=== PATIENT | female | born 1985 | race Caucasian/White ===

== ENCOUNTER 2023-11-29 12:50 | Inpatient (IN) | payer SELFPAY ==
[~2023-11-29] VITALS: Ht 121.9 cm; Wt 2.3 kg
[2023-11-29] MEDS: ENOXAPARIN 40MG/0.4ML SYR SUBCUT SCH (01:20)
[2023-11-29] MEDS: SODIUM CHLORIDE 0.9% 1,000 ML IV SCH (01:23)
[2023-11-29 13:17] LABS: BASOPHILS % 0.4 % (0.0-2.0); EOSINOPHILS % 2.1 % (0.0-5.0); HEMATOCRIT. 37.4 % (36.0-48.0); HEMOGLOBIN. 12.2 g/dL (12.0-16.0); LYMPHOCYTES % 18.8 % (20.0-50.0); MEAN CORPUSCULAR HEMOGLOBIN 28.1 pg (28.0-32.0); MEAN CORPUSCULAR HGB CONC 32.5 g/dL (31.0-37.0); MEAN CORPUSCULAR VOLUME 86.4 fL (81.0-99.0); MEAN PLATELET VOLUME 7.7 fl (7.4-10.4); MONOCYTES % 6.7 % (2.0-8.0); PLATELET 297 x1000/uL (130-400); RED BLOOD CELL COUNT 4.33 mill/uL (4.2-5.4); RED CELL DISTRIBUTION WIDTH 14.5 % (11.6-14.6); WHITE BLOOD COUNT 7.3 x1000/uL (4.5-11.0)
[2023-11-29 13:25] LABS: CHLORIDE 106 mEq/L (98-107); POTASSIUM 3.7 mEq/L (3.5-5.1); SODIUM 137 mEq/L (136-145)
[2023-11-29 13:26] LABS: CARBON DIOXIDE 28 mEq/L (21-32)
[2023-11-29 13:27] LABS: CALCIUM 8.9 mg/dL (8.7-10.4)
[2023-11-29 13:31] LABS: CREATININE 0.7 mg/dL (0.6-1.0); GLUCOSE 119 mg/dL (70-105)
[2023-11-29 13:32] LABS: UREA NITROGEN BLOOD 11 mg/dL (9-23)
[2023-11-29 13:33] LABS: ALANINE AMINOTRANSFERASE 827 IU/L (10-49); ALBUMIN 4.4 g/dL (3.2-4.8); ASPARTATE AMINOTRANSFERASE 585 IU/L (<34)
[2023-11-29 13:34] LABS: BILIRUBIN TOTAL 1.6 mg/dL (0.1-1.0); PROTEIN TOTAL 7.1 g/dL (6.0-8.3)
[2023-11-29 15:06] LABS: HCG SCREEN NEGATIVE
[2023-11-29] MEDS: SODIUM CHLORIDE 0.9% 1,000 ML IV ONE (15:32)
[2023-11-29] MEDS: ONDANSETRON HCL 4MG/2ML INJ IV ONE (15:34)
[2023-11-29 15:35] LABS: CLARITY URINE CLOUDY (CLEAR); COLOR URINE ORANGE (YELLOW); GLUCOSE URINE NEGATIVE (NEGATIVE); KETONES URINE TRACE (NEGATIVE); LEUKOCYTE ESTERASE URINE 2+ (NEGATIVE); NITRITE URINE NEGATIVE (NEGATIVE); OCCULT BLOOD URINE 3+ (NEGATIVE); PROTEIN URINE 1+ (NEGATIVE); SPECIFIC GRAVITY URINE 1.023 (1.005-1.030)
[2023-11-29 16:07] LABS: BACTERIA URINE 2+; RBC URINE TNTC /hpf (0-2); SQUAMOUS EPITHELIAL CELL URINE 1+ /lpf (RARE/1+)
[2023-11-29] MEDS: MORPHINE SULFATE 2 MG/ML INJ (NOT FOR IM USE) IV NR (16:11)
[2023-11-29] MEDS ORDERED: SODIUM CHLORIDE 0.9% 1,000 ML IV ONE (16:30)
[2023-11-29] MEDS ORDERED: GUAIFENESIN 200MG/10ML SUGAR FREE UDC PO PRN (17:15)
[2023-11-29] MEDS ORDERED: IPRATROPIUM/ALBUTEROL 0.5-3(2.5)MG/3ML NEB NEB PRN (17:15)
[2023-11-29] MEDS ORDERED: MAGNESIUM/ALUMINUM HYDROXIDE/SIMETHICONE 30ML UDC PO PRN (17:15)
[2023-11-29] MEDS ORDERED: NITROGLYCERIN 0.4MG TABLET SL SL PRN (17:15)
[2023-11-29] MEDS ORDERED: ZOLPIDEM TARTRATE 5MG TABLET PO PRN (17:15)
[2023-11-29] MEDS ORDERED: ACETAMINOPHEN 325MG TABLET PO PRN ×2 (17:15)
[2023-11-29] MEDS ORDERED: AZITHROMYCIN 500 MG in DEXT 5% WATER 250 ML IV SCH (17:15)
[2023-11-29] MEDS ORDERED: DOCUSATE SODIUM 100MG CAPSULE PO PRN (17:15)
[2023-11-29] MEDS ORDERED: CLONIDINE 0.1MG TABLET PO PRN (17:15)
[2023-11-29] MEDS ORDERED: NALOXONE HCL 0.4MG/ML VIAL IV PRN (17:30)
[2023-11-29] MEDS: CEFTRIAXONE 1GM/50ML 50 ML IV SCH (18:51)
[2023-11-29] MEDS: PANTOPRAZOLE SODIUM 40 MG/VIAL IV SCH (18:52)
[2023-11-29 18:56] LABS: T4 FREE 1.35 ng/dL (0.89-1.76)
[2023-11-29 18:57] LABS: THYROID STIMULATING HORMONE 2.63 uIU/mL (0.55-4.78)
[2023-11-29 18:59] LABS: VITAMIN B12 SERUM 1306 pg/mL (211-911)
[2023-11-29] MEDS: KETOROLAC 15MG/ML VIAL IV PRN (19:10)
[2023-11-29] MEDS ORDERED: AZITHROMYCIN 500MG/250ML 250 ML IV SCH (19:30)
[2023-11-29 22:10] VITALS: BP 105/57; PULSE 60; RESP 20; TEMP 36.6404
[2023-11-29] MEDS ORDERED: IOHEXOL-300 100 ML BOTTLE ONE (23:22)
[2023-11-30] VITALS: BP 105/57; PULSE 60; RESP 20; TEMP 36.61404; O2SAT 96
[2023-11-30] MEDS: ASCORBIC ACID 500 MG TABLET PO SCH (01:28)
[2023-11-30 04:00] VITALS: BP 98/53; PULSE 54; RESP 20; TEMP 36.72516; O2SAT 96
[2023-11-30] MEDS: AZITHROMYCIN 500MG/250ML 250 ML IV SCH (06:03)
[2023-11-30 07:15] LABS: CHLORIDE 108 mEq/L (98-107); POTASSIUM 3.5 mEq/L (3.5-5.1); SODIUM 140 mEq/L (136-145)
[2023-11-30 07:16] LABS: CARBON DIOXIDE 24 mEq/L (21-32)
[2023-11-30 07:17] LABS: CALCIUM 8.2 mg/dL (8.7-10.4)
[2023-11-30 07:21] LABS: CREATININE 0.6 mg/dL (0.6-1.0); GLUCOSE 85 mg/dL (70-105)
[2023-11-30 07:22] LABS: PROTEIN TOTAL 6.2 g/dL (6.0-8.3); UREA NITROGEN BLOOD 9 mg/dL (9-23)
[2023-11-30 07:23] LABS: ALANINE AMINOTRANSFERASE 674 IU/L (10-49); ALBUMIN 3.9 g/dL (3.2-4.8); AMYLASE 798 IU/L (30-118); ASPARTATE AMINOTRANSFERASE 259 IU/L (<34); BASOPHILS % 0.2 % (0.0-2.0); EOSINOPHILS % 0.4 % (0.0-5.0); HEMATOCRIT. 36.5 % (36.0-48.0); HEMOGLOBIN. 11.6 g/dL (12.0-16.0); MEAN CORPUSCULAR HEMOGLOBIN 27.8 pg (28.0-32.0); MEAN CORPUSCULAR HGB CONC 31.8 g/dL (31.0-37.0); MEAN CORPUSCULAR VOLUME 87.4 fL (81.0-99.0); MEAN PLATELET VOLUME 8.8 fl (7.4-10.4); MONOCYTES % 5.2 % (2.0-8.0); NEUTROPHILS % 78.2 % (40.0-76.0); PLATELET 249 x1000/uL (130-400); RED BLOOD CELL COUNT 4.17 mill/uL (4.2-5.4); RED CELL DISTRIBUTION WIDTH 14.9 % (11.6-14.6)
[2023-11-30 08:00] VITALS: BP 91/47; PULSE 63; RESP 18; TEMP 36.83628; O2SAT 98
[2023-11-30] MEDS: ZINC SULFATE 220 MG ( 50 ) CAPSULE PO SCH (08:31)
[2023-11-30] MEDS ORDERED: CEFTRIAXONE 1GM/50ML 50 ML IV SCH (09:00)
[2023-11-30] MEDS: ONDANSETRON HCL 4MG/2ML INJ IV PRN (11:36)
[2023-11-30] MEDS: MORPHINE SULFATE 2 MG/ML INJ (NOT FOR IM USE) IV PRN (11:37)
[2023-11-30 12:00] VITALS: BP 119/46; PULSE 63; RESP 18; TEMP 37.11408; O2SAT 98
[2023-11-30 16:00] VITALS: BP 95/41; PULSE 53; RESP 18; TEMP 36.28068; O2SAT 100
[2023-11-30 20:00] VITALS: BP 101/53; PULSE 61; RESP 18; TEMP 36.9474; O2SAT 94
[2023-12-01] VITALS: BP 116/67; PULSE 68; RESP 20; TEMP 36.55848; O2SAT 100
[2023-12-01 04:00] VITALS: BP 116/73; PULSE 56; RESP 20; TEMP 37.00296; O2SAT 100
[2023-12-01 07:25] LABS: BASOPHILS % 0.4 % (0.0-2.0); EOSINOPHILS % 1.5 % (0.0-5.0); HEMATOCRIT. 34.8 % (36.0-48.0); HEMOGLOBIN. 11.2 g/dL (12.0-16.0); LYMPHOCYTES % 20.4 % (20.0-50.0); MEAN CORPUSCULAR HEMOGLOBIN 27.9 pg (28.0-32.0); MEAN CORPUSCULAR HGB CONC 32.2 g/dL (31.0-37.0); MEAN CORPUSCULAR VOLUME 86.7 fL (81.0-99.0); MEAN PLATELET VOLUME 8.3 fl (7.4-10.4); MONOCYTES % 7.3 % (2.0-8.0); NEUTROPHILS % 70.4 % (40.0-76.0); PLATELET 250 x1000/uL (130-400); RED BLOOD CELL COUNT 4.01 mill/uL (4.2-5.4); RED CELL DISTRIBUTION WIDTH 15.2 % (11.6-14.6); WHITE BLOOD COUNT 8.4 x1000/uL (4.5-11.0)
[2023-12-01 07:51] LABS: CHLORIDE 109 mEq/L (98-107); POTASSIUM 3.3 mEq/L (3.5-5.1); SODIUM 140 mEq/L (136-145)
[2023-12-01 07:55] LABS: CARBON DIOXIDE 26 mEq/L (21-32)
[2023-12-01 07:56] LABS: CALCIUM 8.3 mg/dL (8.7-10.4)
[2023-12-01 08:00] VITALS: BP 105/52; PULSE 63; RESP 19; TEMP 36.72516; O2SAT 97
[2023-12-01 08:00] LABS: CREATININE 0.5 mg/dL (0.6-1.0); GLUCOSE 107 mg/dL (70-105)
[2023-12-01 08:01] LABS: AMYLASE 196 IU/L (30-118)
[2023-12-01 08:02] LABS: ALANINE AMINOTRANSFERASE 413 IU/L (10-49); ALBUMIN 3.7 g/dL (3.2-4.8); ASPARTATE AMINOTRANSFERASE 67 IU/L (<34)
[2023-12-01 08:03] LABS: BILIRUBIN TOTAL 0.5 mg/dL (0.1-1.0); PROTEIN TOTAL 6.2 g/dL (6.0-8.3)
[2023-12-01 08:06] LABS: UREA NITROGEN BLOOD < 5 mg/dL (9-23)
[2023-12-01] MEDS: FAMOTIDINE 20MG/2ML VIAL IV SCH (08:43)
[2023-12-01 11:16] VITALS: BP 105/52; PULSE 63; TEMP 98.2; O2SAT 97
[2023-12-01 12:00] VITALS: BP 112/57; PULSE 66; RESP 18; TEMP 36.44736; O2SAT 98
== END 2023-12-01 12:00 | disposition home or self-care (01) ==
LOC: ER 13:33 → 5WST 15:11 → EDBEDREQTM 15:21 → EDBEDREQ 15:21 → 6EST 21:50
PROVIDERS: ADMIT Psychiatry & Neurology Neurology; ATTEND Internal Medicine
DX: K80.00 Calculus of gallbladder with acute cholecystitis without obstruction (principal); K85.10 Biliary acute pancreatitis without necrosis or infection; N39.0 Urinary tract infection, site not specified; E66.9 Obesity, unspecified; Z68.1 Body mass index [BMI] 19.9 or less, adult
CPT/HCPCS: 36415; 74177; 76830; 76856; 80048; 80053; 80076; 81003; 82150; 82607; 83036; 83735; 84100; 84439; 84443; 84703; 85025; 93970; 99285; J0456; J0696; J1650; J1885; J2270; J2405; J2470; J3490; J7030; J7060; Q9967